=== PATIENT | female | born 1960 | race Two or more races ===

== ENCOUNTER 2020-12-19 23:06 | Emergency (ER) | payer MEDICARE, OTHER ==
[~2020-12-19] VITALS: Ht 170.2 cm; Wt 67.6 kg
--- NOTE | 2020-12-19 23:31 | NUR ---
MD Mckenzie in room to do MSE.
[2020-12-19] MEDS ORDERED: HYDR-4209 PO (23:42)
[2020-12-19] MEDS ORDERED: DOCU-141 PO (23:42)
[2020-12-19] MEDS ORDERED: HYDROCODONE/APAP 5-325MG TABLET PO ONE (23:45)
[2020-12-19] MEDS ORDERED: HYDROCODONE/APAP 5-325MG TABLET ONE (23:46)
[2020-12-19] MEDS ORDERED: ALPR0.255 PO (23:56)
--- NOTE | 2020-12-20 | NUR ---
Patient verbalizes great relief of pain down to 4/10 after administration of NORCO-5.
[2020-12-20 00:05] VITALS: BP 138/86
--- NOTE | 2020-12-20 00:05 | NUR ---
Patient discharged to home in stable condition. Written and verbal after care instructions given. Patient verbalizes understanding of instructions. Stressed follow up or return to ER for worsening s/s. Patient ambulates with steady gait, received Rx, V/S stable, left with all personal belongings.
== END 2020-12-20 00:05 | disposition home or self-care (01) ==
LOC: ER 23:09
DX: M54.2 Cervicalgia (principal); J45.909 Unspecified asthma, uncomplicated; R03.0 Elevated blood-pressure reading, without diagnosis of hypertension; F41.9 Anxiety disorder, unspecified
CPT/HCPCS: A4663